=== PATIENT | female | born 1960 | race Caucasian/White ===

== ENCOUNTER 2020-10-07 18:34 | Inpatient (IN) | payer OTHER ==
[~2020-10-07] VITALS: Ht 172.7 cm; Wt 130.0 kg
[~2020-10-07 18:34] MED LIST: NORCO 5-325 TA1 EACH PO
[2020-10-07 18:41] VITALS: BP 119/50
[2020-10-07] MEDS ORDERED: CELEBREX 200 M200 MG PO (18:45)
[2020-10-07] MEDS ORDERED: FORMULA (18:45)
[2020-10-07] MEDS ORDERED: CALCIUM MAG ZINC (18:45)
[2020-10-07] MEDS ORDERED: ZESTRIL40 MG PO (18:49)
[2020-10-07 18:59] LABS: ABSOLUTE BASOPHILS 0.1 thou/uL (0.0-0.2); ABSOLUTE LYMPHOCYTES 1.2 thou/uL (0.8-5.3); ABSOLUTE MONOCYTES 0.6 thou/uL (0.0-1.2); ABSOLUTE NEUTROPHILS 8.4 thou/uL (1.6-8.1); HEMATOCRIT 45.2 % (37.0-47.0); HEMOGLOBIN 15.5 gm/dL (12.0-15.0); MCH 30.8 pg (26.0-34.0); MCHC 34.4 g/dL (28.0-37.0); MCV 89.6 fL (80.0-100.0); MONOCYTES 6.2 %; MPV 8.2 fl. (7.2-11.1); NUCLEATED RBCS 0 /100WBC; PLATELET COUNT* 209 thou/uL (150-400); POLYS 80.8 %; RBC 5.05 mil/uL (4.20-5.00); RDW-CV 12.3 % (10.5-14.5); WBC 10.4 thou/uL (4.0-11.0)
[2020-10-07 19:12] LABS: CALCIUM 8.6 mg/dL (8.5-10.1); CREATININE 0.9 mg/dL (0.6-1.3); POTASSIUM 4.5 mmol/L (3.5-5.1)
[2020-10-07 19:13] LABS: APTT 27.9 Seconds (25.0-31.3); PROTIME 10.4 Seconds (9.20-11.50)
[2020-10-07 19:24] LABS: ALBUMIN 3.5 g/dL (3.4-5.0); MAGNESIUM 2.1 mg/dL (1.8-2.4); TOTAL BILIRUBIN 0.6 mg/dL (<0.1-1.0); TOTAL PROTEIN 8.2 g/dL (6.4-8.2)
[2020-10-07 23:03] LABS: URINE BILIRUBIN NEGATIVE (Negative); URINE BLOOD TRACE (Negative); URINE CLARITY CLEAR; URINE COLOR YELLOW; URINE GLUCOSE-RANDOM NEGATIVE (Negative); URINE KETONES TRACE (Negative); URINE LEUKOCYTES-REFLEX NEGATIVE (Negative); URINE NITRITE-REFLEX NEGATIVE (Negative); URINE PROTEIN 1+ (Negative); URINE SPECIFIC GRAVITY 1.015 (1.005-1.030); URINE UROBILINOGEN 0.2 E.U./dl (0.2-1.0)
[2020-10-07 23:21] LABS: INFLUENZA A ANTIGEN Negative (Negative); INFLUENZA B ANTIGEN Negative (Negative)
[2020-10-07 23:50] VITALS: BP 111/56
[2020-10-08] VITALS (7 sets, daily range): BP systolic 116–131; BP diastolic 46–75
[2020-10-08] MEDS ORDERED: ZPAK PO (00:50)
[2020-10-08] MEDS ORDERED: MEDROLDOSEPACK PO (01:01)
[2020-10-08] MEDS ORDERED: PROAIR HFA8.5 GM INH (01:04)
--- NOTE | 2020-10-08 02:00 | NUR ---
PT A+OX4. RESPIRATORY AND VSS. PT REPORTS MOSTLY FATIGUE AND SOA WITH COARSE COUGH. AFIB RESOLVED WITH CARDIZEM DRIP INFUSING @ 10/HR. ADMISSION ASSESSMENT COMPLETE. MEDICATIONS REVIEWED. ORDERS NOTED. PT HAS BEEN RESTING WITHOUT INCIDENT.
--- NOTE | 2020-10-08 09:51 | NUR ---
CM SPOKE TO THE PT VIA HOSPITAL ROOM PHONE TO DISCUSS CM ASSESSMENT THE PT IS CURRENTLY UNDER ENHANCED PRECAUTIONS FOR COVID 19. PT A&O, NORMALLY INDEPENDENT WITH ADL'S, ATIVE AND DRIVES. PT OWNS 0 DME. PT CURRENTLY ON 3L O2 AND DID NOT USE HOME O2 PRIOR TO ADMIT. PT HAS 0 HX OF HH OR SNF. CM WILL REMAIN AVAILABLE TO ASSIST AND FOLLOW NEEDED.
--- NOTE | 2020-10-08 10:43 | EKG ---
[place] [address] ELECTROCARDIOGRAM REPORT Name: FIDEL ROTH Room: [address] ADM IN .R.#: [id number] Admission: 10/07/20 Attend Phys: Maricruz Baker, Discharge: Date of : 60 Date of Service: 10/07/20 1847 Report #: [id number] THIS REPORT FOR: //name// [facility] ED Test Date: 2020-10-07 Test Time: 18:47:44 Pat Name: FIDEL ROTH Department: Room: [facility] Gender: F Actuarial Intern: DELORIS : 1960 Requested By: Melvin Unger Order Number: [id number] MD: Conner Bradshaw Measurements Intervals [place] Rate: 167 P: NV: QRS: -10 QRSD: 97 T: 18 QT: 258 QTc: 431 Interpretive Statements Atrial fibrillation with rapid V-rate Abnormal R-wave progression, late transition ST depression, probably rate related Baseline wander in lead(s) V2 No previous ECG available for comparison Electronically Signed On 10-08-2020 10:42:51 VACUUM WORKER by Conner Bradshaw [email or web address] <ELECTRONICALLY SIGNED> By: Conner Bradshaw MD, [facility] 10/08/20 1042 1847 184 Conner Bradshaw MD, [facility] /EPI
--- NOTE | 2020-10-08 11:48 | 2DMMODE ---
[place] [address] 2 D/M-MODE ECHOCARDIOGRAM Name: FIDEL ROTH Room: [address] IN [facility]#: [id number] Admission: 10/07/20 Attend Phys: Maricruz Baker, Discharge: Date of : 60 Date of Service: 10/08/20 1148 Report #: [id number] THIS REPORT FOR: cc: TOMAS CARTER DEBRA L FNP Liston, Michael J. MD [facility] ~ APPROVED REPORT Study performed: 10/08/2020 10:26:38 EXAM: Comprehensive 2D, Doppler, and color-flow Echocardiogram Patient Location: In-Patient Room #: [facility] Status: routine BSA: 2.38 HR: 79 bpm BP: 121/59 mmHg Rhythm: NSR Other Information Study Quality: Good Indications Atrial Fibrillation 2D Dimensions IVSd: 11.40 (7-11mm) LVOT Diam: 23.33 (18-24mm) LVDd: 46.52 mm PWd: 9.28 (7-11mm) Ascending Ao: 33.06 (22-36mm) LVDs: 29.98 (25-40mm) Aortic Root: 31.98 mm Volumes Left Atrial Volume (Systole) LA ESV Index: 30.50 mL/m2 Aortic Valve AoV Peak Orville.: 1.54 m/s AO Peak Gr.: 9.49 mmHg LVOT Max P.48 mmHg AO Mean Gr.: 5.13 mmHg LVOT Mean P.21 mmHg LVOT Max V: 1.06 m/s AO V2 VTI: 33.81 cm LVOT Mean V: 0.69 m/s MATY (VTI): 3.23 cm2 LVOT V1 VTI: 25.54 [place] [address] 2 D/M-MODE ECHOCARDIOGRAM Name: FIDEL ROTH Room: [address] IN [facility]#: [id number] Admission: 10/07/20 Attend Phys: Maricruz Baker, Discharge: Date of : 60 Date of Service: 10/08/20 1148 Report #: [id number] Mitral Valve E/A Ratio: 0.70 MV Decel. Time: 261.06 ms MV E Max Orville.: 0.64 m/s MV PHT: 75.71 ms MVA (PHT): 2.91 cm2 Pulmonary Valve PV Peak Orville.: 0.83 m/s PV Peak Gr.: 2.76 mmHg Tricuspid Valve RAP Estimate: 5.00 mmHg TR Peak Gr.: 26.86 mmHg RVSP: 31.00 mmHg PA Pressure: 31.00 mmHg Left Ventricle The left ventricle is normal size. There is normal LV segmental wall motion. There is normal left ventricular wall thickness. Left ventricular systolic function is normal. LVEF is 65-70%. Grade I - abnormal relaxation pattern. Right Ventricle The right ventricle is normal size. The right ventricular systolic function is normal. Atria The left atrium size is normal. The right atrium size is normal. Aortic Valve The aortic valve is normal in structure. Mild aortic regurgitation. There is no aortic valvular stenosis. Mitral Valve The mitral valve is normal in structure. Trace mitral regurgitation. No evidence of mitral valve stenosis. Tricuspid Valve The tricuspid valve is normal in structure. Trace tricuspid regurgitation. The RVSP is 30-35 mmHg. Pulmonic Valve The pulmonary valve is normal in structure. There is no pulmonic valvular regurgitation[place] [address] 2 D/M-MODE ECHOCARDIOGRAM Name: FIDEL ROTH Room: [address]#: [id number] Admission: 10/07/20 Attend Phys: Maricruz Baker, Discharge: Date of : 60 Date of Service: 10/08/20 1148 Report #: [id number] The aortic root is normal in size. IVC is normal in size and collapses >50% with inspiration. Pericardium There is no pericardial effusion. <Conclusion> The left ventricle is normal size. There is normal left ventricular wall thickness. Left ventricular systolic function is normal. LVEF is 65-70%. Grade I - abnormal relaxation pattern. Mild aortic regurgitation. Trace mitral regurgitation. Trace tricuspid regurgitation. The RVSP is 30-35 mmHg. IVC is normal in size and collapses >50% with inspiration. <ELECTRONICALLY SIGNED> By: Spencer Morejon MD, FACC 10/08/20 1148 1148 1148 Spencer Morejon MD, FACC /INF
--- NOTE | 2020-10-08 15:49 | NUR ---
CALL FROM PTS ABOUT NOON. HE WAS UPSET STATING WAS OUT OF NETWORK FOR HER INSURANCE. HE SAID HE CALLED INSURANCE AND THEY SAID SHE NEEDED TO BE TRANSFERRED TO ANOTHER FACILITY AND THEY WOULD NOT PAY HIS BILL HERE. DISTRAUGHT AND CRYING. HE SAID I CAN'T HAVE A BIG HOSPITAL BILL. EXPLAINED THAT WE HAD NOT HEARD FROM INSURANCE YET. USUALLY THEY WILL DO A CASE BY CASE RATE. ALL HOSPITALS IN THIS AREA ARE BUSY, THERE MAY NOT EVEN BE A PLACE TO TRANSFER HER. HE CALMED DOWN A BIT. HE SAID HE WOULD WAIT UNTIL MONDAY AND SEE WHAT INSURANCE IS SAYING THEN.
--- NOTE | 2020-10-08 18:47 | NUR ---
PT IS RESTING QUIETLY IN BED. DENIES ANY NEEDS OR CONCERNS. ON TINSEL MACHINE OPERATOR, VSS, UP AD FILI IN ROOM, A&OX4. WILL CONTINUE POC AND NURSING WILL CONTINUE TO MONITOR.
[2020-10-09] VITALS: BP 130/65
--- NOTE | 2020-10-09 01:13 | NUR ---
ASSUMED CARE OF PT AT 1900. PT IS ALERT AND ORIENTED. VSS. PERRLA. PT IS ON 3.5 LITERS OF O2. PT IS IN SINUS RYTHM ON THE TELEMETRY. PT IS SLEEPING QUIETLY IN BED. RESPIRATIONS ARE EVEN AND NONLABORED. WILL CONTINUE TO MONITOR PT.
[2020-10-09 03:50] VITALS: BP 120/64
[2020-10-09 04:05] LABS: CREATININE 0.7 mg/dL (0.6-1.3); HEMATOCRIT 37.9 % (37.0-47.0); MCH 30.7 pg (26.0-34.0); MCHC 34.1 g/dL (28.0-37.0); MCV 89.9 fL (80.0-100.0); MPV 8.3 fl. (7.2-11.1); NUCLEATED RBCS 0 /100WBC; PLATELET COUNT* 203 thou/uL (150-400); POTASSIUM 4.4 mmol/L (3.5-5.1); RBC 4.21 mil/uL (4.20-5.00); RDW-CV 12.2 % (10.5-14.5); WBC 8.8 thou/uL (4.0-11.0)
[2020-10-09 04:06] LABS: HEMOGLOBIN 12.9 gm/dL (12.0-15.0)
[2020-10-09 04:50] LABS: ABSOLUTE LYMPHOCYTES 0.5 thou/uL (0.8-5.3); ABSOLUTE MONOCYTES 0.3 thou/uL (0.0-1.2); PLATELET ESTIMATE ADEQUATE
[2020-10-09 09:30] VITALS: BP 147/60
[2020-10-09 14:08] VITALS: BP 136/75
[2020-10-09 16:02] VITALS: BP 121/55
[2020-10-09 19:25] VITALS: BP 132/64
[2020-10-10] VITALS (8 sets, daily range): BP systolic 112–135; BP diastolic 52–71
--- NOTE | 2020-10-10 03:49 | NUR ---
ASSUMED CARE OF PT AT 1900. PT IS ALERT AND ORIENTED. VSS. PERRLA. NO COMPLAINTS OF PAIN. PT IS UP AD FILI. PT IS ON 3.5 L/MIN. PT IS IN SINUS RYTHM ON THE TELEMETRY. PT IS RESTING COMFORTABLY IN BED. RESPIRATIONS ARE EVEN AND NONLABORED. WILL CONTINUE TO MONITOR PT.
--- NOTE | 2020-10-10 18:43 | NUR ---
PT AO X4 SITTING IN BED AT TIME OF ASSESSMENT SHE IS FEELING FATIGUED TODAY. SHE IS AMBULATING TO TOILET WITHOUT PROBLEM. CONVALESCENT PLASMA GIVEN WITHOUT PROBLEM AND PT EATING MOST OF MEAL TRAYS. VSS, PT IS COUGHING BUT STATES PHLEGM NO EXPECTORATED. SHE IS GETTING IV ANTIBIOTICS AND STEROIDS PER MAR, SHE DID RECEIVE A DOSE OF LASIX.
--- NOTE | 2020-10-11 02:28 | NUR ---
ASSUMED CARE OF PT AT 1900. PT IS ALERT AND ORIENTED. VSS. PERRLA. N O COMPLAINTS OF PAIN. O2 REDUCED TO 3 LITERS. PT IS IN SINUS RYTHM ON THE TELEMETRY. PT IS RESTING COMFORTABLY IN BED. RESPIRATIONS ARE EVEN AND NONLABORED. WILL CONTINUE TO MONITOR PT.
[2020-10-11 04:19] LABS: ABSOLUTE LYMPHOCYTES 0.9 thou/uL (0.8-5.3); ABSOLUTE MONOCYTES 0.9 thou/uL (0.0-1.2); ABSOLUTE NEUTROPHILS 10.6 thou/uL (1.6-8.1); BASOPHILS 0.4 %; HEMATOCRIT 38.6 % (37.0-47.0); LYMPHOCYTES 7.3 %; MCH 30.1 pg (26.0-34.0); MCHC 33.7 g/dL (28.0-37.0); MCV 89.2 fL (80.0-100.0); MONOCYTES 7.2 %; MPV 8.3 fl. (7.2-11.1); NUCLEATED RBCS 0 /100WBC; PLATELET COUNT* 258 thou/uL (150-400); POLYS 85.1 %; RBC 4.32 mil/uL (4.20-5.00); RDW-CV 12.2 % (10.5-14.5); WBC 12.5 thou/uL (4.0-11.0)
[2020-10-11 04:33] LABS: ALBUMIN 2.9 g/dL (3.4-5.0); CALCIUM 8.4 mg/dL (8.5-10.1); CREATININE 0.8 mg/dL (0.6-1.3); TOTAL BILIRUBIN 0.5 mg/dL (<0.1-1.0); TOTAL PROTEIN 6.6 g/dL (6.4-8.2)
[2020-10-11 04:54] VITALS: BP 119/48
[2020-10-11 08:40] VITALS: BP 125/61
[2020-10-11 12:00] VITALS: BP 119/55
[2020-10-11 16:00] VITALS: BP 127/66
--- NOTE | 2020-10-11 18:14 | NUR ---
PT IS AO X4 AND HAS BEEN SITTING IN BED WELL CHAIR TODAY WATCHING TV. SHE STATES SHE FEELS BETTER TODAY THAN SHE DID YESTERDAY. PT STILL HAS COUGH AND IS ON 3.5 L OF OXYGEN. SHE AMBULATES TO TOILET WITH NO PROBLEMS. PT REQUESTED TO TAKE A SHOWER TODAY. SHE HAS GOTTEN IV REMDESIVIR AND STEROIDS TODAY ALONG WITH LEQAQUIN. SHE HAS ADEQUATE PO INTAKE OF FOOD AND FLUIDS.
[2020-10-11 22:30] VITALS: BP 128/65
[2020-10-12] VITALS (7 sets, daily range): BP systolic 101–146; BP diastolic 52–78
[2020-10-12 05:10] LABS: ABSOLUTE LYMPHOCYTES 0.9 thou/uL (0.8-5.3); ABSOLUTE MONOCYTES 0.9 thou/uL (0.0-1.2); BASOPHILS 0.2 %; HEMATOCRIT 39.8 % (37.0-47.0); HEMOGLOBIN 13.3 gm/dL (12.0-15.0); LYMPHOCYTES 7.4 %; MCH 29.8 pg (26.0-34.0); MCHC 33.4 g/dL (28.0-37.0); MCV 89.3 fL (80.0-100.0); MONOCYTES 7.2 %; MPV 8.3 fl. (7.2-11.1); NUCLEATED RBCS 0 /100WBC; PLATELET COUNT* 256 thou/uL (150-400); POLYS 85.2 %; RBC 4.46 mil/uL (4.20-5.00); RDW-CV 12.2 % (10.5-14.5); WBC 11.8 thou/uL (4.0-11.0)
[2020-10-12 05:23] LABS: ALBUMIN 2.7 g/dL (3.4-5.0); CALCIUM 8.1 mg/dL (8.5-10.1); CREATININE 0.8 mg/dL (0.6-1.3); POTASSIUM 4.3 mmol/L (3.5-5.1); TOTAL BILIRUBIN 0.4 mg/dL (<0.1-1.0); TOTAL PROTEIN 6.4 g/dL (6.4-8.2)
--- NOTE | 2020-10-12 06:18 | NUR ---
PATIENT HAS SLEPT WELL THROUGHOUT MOST OF THE NIGHT. VSS ON 3.5L 02 VIA NASAL CANNULA. MEDICATIONS GIVEN ORDERED AND CHARTED. PATIENT UP AD-FILI AND STEADY. LUNGS DIMINISHED. IV IN LEFT HAND-SL. PATIENT INSTRUCTED TO USE CALL LIGHT WHEN NEEDING ASSISTANCE. WILL CONTINUE WITH PLAN OF CARE AND NURSING TO MONITOR.
--- NOTE | 2020-10-12 07:33 | NUR ---
Nutrition: Wt stable from assessement last week. RN yesterday noted pt was feeling better and had adequate intake of food and fluids. Albumin 2.7, BUN 19. Dexamethasone and other meds reviewed. Assessed at low nutrition risk.
--- NOTE | 2020-10-12 16:27 | NUR ---
DISCUSSED IN PRIME TIME ROUNDS. POSSIBLE DISCHARGE TOMORROW. RESTING AND EXERCISE SATS DONE TODAY. APPEARS. PT.WOES NOT NEED O2 AT REST BUT WILL NEED 4L/NC WITH ACTIVITY. WILL ORDER FIRST THING IN AM. DISCUSSED WITH PT.
[2020-10-13 01:00] VITALS: BP 109/57
[2020-10-13 05:12] LABS: HEMATOCRIT 40.5 % (37.0-47.0); HEMOGLOBIN 13.9 gm/dL (12.0-15.0); MCH 30.6 pg (26.0-34.0); MCHC 34.3 g/dL (28.0-37.0); MCV 89.1 fL (80.0-100.0); MPV 8.3 fl. (7.2-11.1); NUCLEATED RBCS 0 /100WBC; PLATELET COUNT* 317 thou/uL (150-400); RBC 4.55 mil/uL (4.20-5.00); RDW-CV 12.4 % (10.5-14.5); WBC 15.9 thou/uL (4.0-11.0)
[2020-10-13 05:29] LABS: PREALBUMIN 21.5 mg/dL (18.0-35.7)
[2020-10-13 05:33] LABS: ALBUMIN 2.8 g/dL (3.4-5.0); CALCIUM 8.3 mg/dL (8.5-10.1); CREATININE 0.9 mg/dL (0.6-1.3); TOTAL BILIRUBIN 0.4 mg/dL (<0.1-1.0); TOTAL PROTEIN 6.5 g/dL (6.4-8.2)
[2020-10-13 05:54] LABS: ABSOLUTE MONOCYTES 1.4 thou/uL (0.0-1.2); ABSOLUTE NEUTROPHILS 13.5 thou/uL (1.6-8.1); ANISOCYTOSIS 1+; PLATELET ESTIMATE ADEQUATE; POIKILOCYTOSIS 1+
--- NOTE | 2020-10-13 06:02 | NUR ---
PATIENT HAS SLEPT WELL THROUGHOUT MOST OF THE NIGHT. VSS ON 3.5L 02 VIA NASAL CANNULA. NO C/O PAIN. MEDICATIONS GIVEN ORDERED AND CHARTED. ASSESSMENT CHARTED. PATIENT UP AD-FILI WITH 02 TO THE BATHROOM. IV IN LEFT HAND-SL. PATIENT REMAINS IN ISOLATION D/T COVID-19. PATIENT INSTRUCTED TO USE CALL LIGHT WHEN NEEDING ASSISTANCE. HOURLY ROUNDS MADE. WILL CONTINUE WITH PLAN OF CARE AND NURSING TO MONITOR.
[2020-10-13 08:00] VITALS: BP 124/67
[2020-10-13] MEDS ORDERED: FLECAINIDE ACET50 M1 PO (09:00)
[2020-10-13] MEDS ORDERED: PROTONIX40 M2 PO (09:00)
[2020-10-13] MEDS ORDERED: DILTIAZEM 24HR180 M1 PO (09:00)
[2020-10-13] MEDS ORDERED: ELIQUIS5 MG PO (09:00)
[2020-10-13] MEDS ORDERED: DOXYCYCLINE 10100 MG PO (09:01)
[2020-10-13] MEDS ORDERED: DEXAMETHASONE1 MG PO (09:01)
--- NOTE | 2020-10-13 10:09 | EKG ---
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1960 Requested By: Maricruz Baker Order Number: [id number] MD: Hayder Harvey Measurements Intervals [place] Rate: 70 P: 7 MT: 153 QRS: 11 QRSD: 103 T: 63 QT: 415 QTc: 448 Interpretive Statements Sinus rhythm Baseline wander in lead(s) V1,V2 Compared to ECG 10/07/2020 18:47:44 Atrial fibrillation no longer present ST (T wave) deviation no longer present Electronically Signed On 10-13-2020 10:09:05 ACCOUNTS PAYABLE ACCOUNTANT by Hayder Harvey [email or web address] <ELECTRONICALLY SIGNED> By: Hayder Harvey MD, FACC 10/13/20 1009 175 175 Hayder Harvey MD, FACC /EPI
--- NOTE | 2020-10-13 10:45 | NUR ---
PT.TO DISCHARGE TODAY. PER RESTING AND EXERCISE SAT DONE YESTERDAY,PT.NEEDS 4L/NC WITH ACTIVITY AND ROOM AIR AT REST. FAXED SATS,ORDER,FACE SHEET AND DISCHARGE SUMMARY TO [facility]/[phone]. [facility] WILL DELIVER PORTABLE TANK TO HOSPITAL FOR TRIP HOME. SHE CAN CALL NUMBER ON TANK FOR HOME SET UP WHEN SHE GETS HOME. SAT [facility] THIS AM. ONLY NEEDS 3L/NC WITH ACTIVITY WITH [facility] TODAY.
[2020-10-13 11:53] VITALS: BP 124/67
== END 2020-10-13 13:30 | disposition home or self-care (01) | DRG 871 ==
LOC: M.ERS 18:34 → M.ORTHSURG 19:43 → M.TBA-ER 19:43 → M.ORTHSURG 23:50
PROVIDERS: Emergency Medicine; Emergency Medicine Emergency Medical Services; Internal Medicine; ADMIT Internal Medicine; ATTEND Internal Medicine
DX: A41.89 Other specified sepsis (principal); U07.1 COVID-19; J96.01 Acute respiratory failure with hypoxia; J12.89 Other viral pneumonia; E87.1 Hypo-osmolality and hyponatremia; Z68.41 Body mass index [BMI] 40.0-44.9, adult; F41.9 Anxiety disorder, unspecified; I10 Essential (primary) hypertension; E66.01 Morbid (severe) obesity due to excess calories; I48.0 Paroxysmal atrial fibrillation; J42 Unspecified chronic bronchitis; Z88.0 Allergy status to penicillin; Z90.49 Acquired absence of other specified parts of digestive tract; Z87.891 Personal history of nicotine dependence; Z79.82 Long term (current) use of aspirin; Z79.899 Other long term (current) drug therapy